=== PATIENT | female | born 1980 | race Caucasian/White ===

== ENCOUNTER 2022-08-09 17:22 | Outpatient (NON) | payer OTHER, SELFPAY | END 2022-08-09 17:23 | disposition home or self-care (01) | LOC: ANHLAB 17:26 | PROVIDERS: PCP Nurse Practitioner; Visit Provider Podiatrist Foot & Ankle Surgery | DX: T14.8XXA Other injury of unspecified body region, initial encounter (principal) | CPT/HCPCS: 87070; 87075; 87205 ==